=== PATIENT | female | born 1990 | race Hispanic/Latino ===

== ENCOUNTER 2022-02-13 10:11 | Outpatient (CLI) | payer BC ==
[2022-02-13 10:47] LABS: Basophils % (Auto) 0.5 % (0.0-1.8); Eosinophils # (Auto) 0.1 K/mm3 (0.0-0.4); Hematocrit 43.8 % (30.3-42.9); Hemoglobin 14.8 gm/dl (10.1-14.3); Lymphocytes # (Auto) 1.3 K/mm3 (1.2-5.4); Lymphocytes % (Auto) 21.9 % (13.4-35.0); Mean Corpuscular HGB Conc 34 % (30-34); Mean Corpuscular Volume 92 fl (79-97); Monocytes # (Auto) 0.3 K/mm3 (0.0-0.8); Monocytes % (Auto) 4.5 % (0.0-7.3); Platelet Count 273 K/mm3 (140-440); Red Blood Count 4.74 M/mm3 (3.65-5.03); Red Cell Distribution Width 12.9 % (13.2-15.2)
[2022-02-13 11:27] LABS: Alanine Aminotransferase 20 units/L (7-56); Albumin 4.8 g/dL (3.9-5); Blood Urea Nitrogen 9 mg/dL (7-17); Calcium 9.2 mg/dL (8.4-10.2); Chol/HDL Ratio 2.44 %; HDL Cholesterol 74 mg/dL (40-59); Hemolysis Index 9; Iron 126 ug/dL (37-170); LDL Cholesterol,Direct 98 mg/dL (50-130); Uric Acid 3.3 mg/dL (3.5-7.6)
[2022-02-13 12:06] LABS: BUN/Creatinine Ratio 13
[2022-02-13 19:08] LABS: Erythrocyte Sedimentation Rate 20 mm/Hr (0-20)
== END 2022-02-13 10:12 | disposition home or self-care (01) ==
LOC: LAB 10:11
PROVIDERS: ATTEND Internal Medicine
DX: Z00.00 Encounter for general adult medical examination without abnormal findings (principal); R76.0 Raised antibody titer; R53.83 Other fatigue; E16.0 Drug-induced hypoglycemia without coma; E16.2 Hypoglycemia, unspecified
CPT/HCPCS: 36415; 80053; 80061; 82306; 82607; 82728; 83036; 83540; 83735; 84443; 84550; 85025; 85652; 86038; 86140; 86431